=== PATIENT | female | born 1950 | race African-American/Black ===

== ENCOUNTER 2021-04-18 19:52 | Emergency (ER) | payer MEDICARE, MEDICAID ==
[~2021-04-18] VITALS: Ht 165.1 cm; Wt 73.0 kg
[~2021-04-18 19:52] MED LIST: AMIT10TA7 PO; ARIP20TA2 PO; CLON1TAB PO
[2021-04-18 23:05] LABS: BASOPHILS % 0.1 % (0.0-2.0); HEMATOCRIT. 43.5 % (36.0-48.0); HEMOGLOBIN. 13.8 g/dL (12.0-16.0); LYMPHOCYTES % 22.3 % (20.0-50.0); MEAN CORPUSCULAR HEMOGLOBIN 24.5 pg (28.0-32.0); MEAN CORPUSCULAR VOLUME 77.4 fL (81.0-99.0); MEAN PLATELET VOLUME 8.3 fl (7.4-10.4); MONOCYTES % 5.1 % (2.0-8.0); NEUTROPHILS % 72.5 % (40.0-76.0); PLATELET 250 x1000/uL (130-400); RED BLOOD CELL COUNT 5.62 mill/uL (4.2-5.4); RED CELL DISTRIBUTION WIDTH 18.7 % (11.6-14.6)
[2021-04-18 23:09] LABS: CHLORIDE 107 mEq/L (98-107)
[2021-04-18 23:13] LABS: ETHANOL BLOOD < 10 mg/dL
[2021-04-19 06:35] LABS: CLARITY URINE CLOUDY (CLEAR); COLOR URINE YELLOW (YELLOW); KETONES URINE TRACE (NEGATIVE); LEUKOCYTE ESTERASE URINE TRACE (NEGATIVE); NITRITE URINE POSITIVE (NEGATIVE); OCCULT BLOOD URINE NEGATIVE (NEGATIVE); PROTEIN URINE TRACE (NEGATIVE); SPECIFIC GRAVITY URINE 1.023 (1.005-1.030)
[2021-04-19 06:51] LABS: *AMPHETAMINES SCREEN URINE NEGATIVE (NEGATIVE); *BARBITURATES SCREEN URINE NEGATIVE (NEGATIVE); *BENZODIAZEPINES SCREEN URINE NEGATIVE (NEGATIVE); *COCAINE SCREEN URINE NEGATIVE (NEGATIVE); METHADONE URINE SCREEN NEGATIVE (NEGATIVE)
[2021-04-19 06:52] LABS: CANNABINOID URINE SCREEN NEGATIVE (NEGATIVE); OPIATES URINE SCREEN NEGATIVE (NEGATIVE); PHENCYCLIDINE URINE SCREEN NEGATIVE (NEGATIVE)
[2021-04-19 08:46] LABS: CHLORIDE 108 mEq/L (98-107)
[2021-04-19] MEDS ORDERED: ARIPIPRAZOLE 5MG TABLET PO NR (13:00)
[2021-04-19] MEDS ORDERED: AMITRIPTYLINE 50MG TABLET PO SCH ×2 (21:00)
[2021-04-19] MEDS: AMITRIPTYLINE 25MG TABLET PO SCH (22:00)
[2021-04-19] MEDS: ARIPIPRAZOLE 5MG TABLET PO SCH (22:00)
[2021-04-20] MEDS: CEPHALEXIN 250MG CAPSULE PO SCH ×5 (01:15→21:00)
[2021-04-20] MEDS: ARIPIPRAZOLE 5MG TABLET PO SCH ×2 (09:23→21:58)
[2021-04-20] MEDS ORDERED: MIRTAZAPINE 15MG TABLET PO SCH (21:00)
[2021-04-20] MEDS: AMITRIPTYLINE 25MG TABLET PO SCH (21:00)
[2021-04-21 07:03] VITALS: BP 113/89
== END 2021-04-21 07:16 ==
LOC: ER 19:52
DX: T43.592A Poisoning by other antipsychotics and neuroleptics, intentional self-harm, initial encounter (principal); F23 Brief psychotic disorder; F32.A Depression, unspecified; M19.90 Unspecified osteoarthritis, unspecified site; Z75.1 Person awaiting admission to adequate facility elsewhere; Z88.8 Allergy status to other drugs, medicaments and biological substances; Z20.822 Contact with and (suspected) exposure to COVID-19; Y92.018 Other place in single-family (private) house as the place of occurrence of the external cause
CPT/HCPCS: 36415; 80053; 80307; 80320; 80329; 84443; 85025; 87426; 99285; G0480